=== PATIENT | female | born 1985 | race Caucasian/White ===

== ENCOUNTER 2020-09-02 16:19 | Inpatient (IN) | payer BC ==
[2020-09-02 18:08] VITALS: BP 113/74; PULSE 107
[2020-09-02] MEDS ORDERED: INDOMETHACIN 50 MG CAPSULE PO ONE (19:35)
[2020-09-02] MEDS ORDERED: INDOMETHACIN 25 MG CAPSULE PO PRN (19:46)
[2020-09-02 19:56] LABS: BASO % 0.2 % (0-2.0); EOS % 1.2 % (0-4.5); HEMATOCRIT 32.8 % (32.4-45.2); HEMOGLOBIN 11.1 GM/dL (10.7-15.3); LYMPH % 14.6 % (8-40); MCH 32.8 pg (25.7-33.7); MCHC 33.9 g/dl (32.0-36.0); MEAN CELL VOLUME 96.7 fl (80-96); MONO % 8.7 % (3.8-10.2); NEUT % 75.3 % (42.8-82.8); PLATELET COUNT 192 K/MM3 (134-434); RBC 3.39 M/mm3 (3.60-5.2); RDW 13.7 % (11.6-15.6); WHITE BLOOD COUNT 14.2 K/mm3 (4.0-10.0)
[2020-09-02 19:58] LABS: EPI CELLS 12 /uL (0-25.1); HYALINE CASTS 4 /uL (0-3.1); PH,URINE 6.5 (5.0-8.0); URINE APPEARANCE CLOUDY; URINE BACTERIA 4233 /uL (0-1359); URINE BILIRUBIN NEGATIVE (NEGATIVE); URINE COLOR YELLOW; URINE GLUCOSE (UA) NEGATIVE (NEGATIVE); URINE KETONE 1+ (NEGATIVE); URINE LEUK ESTERASE 2+ (NEGATIVE); URINE NITRITE NEGATIVE (NEGATIVE); URINE PROTEIN NEGATIVE (NEGATIVE); URINE RBC 11 /uL (0-23.9); URINE UROBILINOGEN 0.2 mg/dL (0.2-1.0); URINE WBC 122 /uL (0-25.8)
[2020-09-02] MEDS ORDERED: AMPICILLIN - 2 GM in SODIUM CHLORIDE 100 ML IVPB ONE (20:24)
[2020-09-02 20:27] LABS: POTASSIUM 3.6 mmol/L (3.5-5.1)
[2020-09-02 20:28] LABS: BLOOD UREA NITROGEN 7.8 mg/dL (7-18); CALCIUM 8.6 mg/dL (8.5-10.1)
[2020-09-02 20:30] LABS: ALBUMIN 2.5 g/dl (3.4-5.0)
[2020-09-02 20:31] LABS: CREATININE 0.5 mg/dL (0.55-1.3); URIC ACID 3.6 mg/dL (2.6-7.2)
[2020-09-02 20:34] LABS: BILIRUBIN,TOTAL 0.6 mg/dL (0.2-1); TOT PROT 5.6 g/dl (6.4-8.2)
[2020-09-02] MEDS ORDERED: AMPICILLIN SODIUM 2 GM VIAL ONE (21:34)
[2020-09-02] MEDS ORDERED: MAGNESIUM 4GM/H20 - 4 GM/100 ML IVPB IVPB SCH (21:45)
[2020-09-02] MEDS ORDERED: BETAMET ACET/BETAMET NA PH 30 MG/5 ML VIAL ONE (21:45)
[2020-09-02] MEDS ORDERED: MAGNESIUM SULFATE 20GM/500ML - 20 GM/500 ML INFUS.BAG IV SCH (21:45)
[2020-09-02] MEDS ORDERED: BETAMET ACET/BETAMET NA PH 30 MG/5 ML VIAL IM SCH (21:45)
[2020-09-02] MEDS ORDERED: MAGNESIUM 4GM/H20 - 4 GM/100 ML IVPB IVPB ONE (21:46)
[2020-09-02 22:43] LABS: INR 0.95 (0.83-1.09); PROTHROMBIN TIME (PATIENT) 11.5 SEC (9.7-13.0)
[2020-09-02] MEDS ORDERED: MAGNESIUM SULFATE 20GM/500ML - 20 GM/500 ML INFUS.BAG ONE (22:44)
[2020-09-02 22:45] LABS: ACTIVATED PTT 24.1 SECONDS (25.2-36.5)
[2020-09-02 23:00] VITALS: BMI 31.1
[2020-09-03 00:30] VITALS: TEMP 98.3
== END 2020-09-03 04:13 | disposition short-term general hospital (02) | DRG 832 ==
LOC: JDEL 16:19 → EDBD 21:40 → JLDR 21:40
PROVIDERS: ADMIT Obstetrics & Gynecology; ATTEND Obstetrics & Gynecology
DX: O60.03 Preterm labor without delivery, third trimester (principal); O23.43 Unspecified infection of urinary tract in pregnancy, third trimester; O30.003 Twin pregnancy, unspecified number of placenta and unspecified number of amniotic sacs, third trimester; Z3A.29 29 weeks gestation of pregnancy
CPT/HCPCS: 36415; 76810-TC; 76817-TC; 80053; 81003; 84550; 85025; 85610; 85730; 86780; 86850; 86900; 86901; 87086; 96372; C9803; U0003